=== PATIENT | male | born 1940 | race Caucasian/White ===

== ENCOUNTER → 2016-07-20 | Outpatient (REF) ==
[~2016-07-20] MED LIST: CIPRO 500MG TA500 MG PO; COLACE 100100 MG/CAP PO; NORCO 325 MG-51 TAB PO; PYRIDIUM 100MG100 MG PO
[2016-07-20 04:53] LABS: BASO % 0.2 % (0.0-2.0); GRAN # 11.2 (1.4-6.5); GRAN % 89.7 % (42.2-75.2); HEMATOCRIT 40.7 % (42.0-52.0); HEMOGLOBIN 14.1 g/dl (13.5-18.0); LYMPH # 0.8 (1.2-3.4); LYMPH % 6.8 % (20.0-51.0); MEAN CELL VOLUME 93 fl (80.0-100.0); MEAN CORPUSCULAR HEMOGLOBIN 32 pg (27.0-31.0); MEAN CORPUSCULAR HGB CONC 35 g/dl (33.0-37.0); MEAN PLATELET VOLUME 10.6 fl (7.4-10.4); MONO # 0.4 (0.1-0.6); MONO % 2.8 % (1.7-9.3); PLATELET COUNT 163 K/mm3 (130-400); RED BLOOD COUNT 4.37 M/mm3 (4.20-5.60); REDCELL DISTRIBUTION WIDTH-CV 13.4 % (11.5-14.5); WHITE BLOOD COUNT 12.4 K/mm3 (4.8-10.8)
== END ==
LOC: ZMSC 04:50
PROVIDERS: Urology
DX: Z01.89 Encounter for other specified special examinations (principal)

== ENCOUNTER 2016-07-25 15:58 | Observation (INO) | payer MEDICARE, BC ==
[~2016-07-25] VITALS: Ht 172.7 cm; Wt 77.5 kg
[2016-07-25] MEDS ORDERED: PYRIDIUM 100MG100 MG PO (16:26)
[2016-07-25] MEDS ORDERED: NORCO 325 MG-51 TAB PO (16:26)
[2016-07-25] MEDS ORDERED: CIPRO 500MG TA500 MG PO (16:27)
[2016-07-25 17:16] LABS: PH 6 (5-8); URINE APPEARANCE Cloudy; URINE BILIRUBIN Negative (NEGATIVE); URINE BLOOD 2+ (NEGATIVE); URINE GLUCOSE Negative (NEGATIVE); URINE KETONE Negative (NEGATIVE); URINE UROBILINOGEN Negative (NEGATIVE)
[2016-07-25 17:17] LABS: URINE BACTERIA Moderate /hpf; URINE COLOR Red
[2016-07-25 17:18] LABS: URINE RBC >50 /hpf
[2016-07-25 18:06] VITALS: BP 137/60; PULSE 75; TEMP 97
[2016-07-25] MEDS ORDERED: COLACE 100100 MG/CAP PO (18:08)
[2016-07-26 02:16] VITALS: BP 134/61; PULSE 79; TEMP 98.5
[2016-07-26 04:55] VITALS: BP 144/65; PULSE 84; TEMP 99.6
[2016-07-26 09:30] VITALS: BP 163/53; PULSE 83; TEMP 98.3
[2016-07-26 14:13] VITALS: BP 131/57; PULSE 79; TEMP 98.9
== END 2016-07-26 15:35 | disposition home or self-care (01) ==
LOC: COL.ER 15:58 → JCC 16:48
PROVIDERS: Emergency Medicine
DX: R31.9 Hematuria, unspecified (principal); R33.9 Retention of urine, unspecified; Z90.49 Acquired absence of other specified parts of digestive tract
CPT/HCPCS: A4315; G0378; J7030

== ENCOUNTER 2019-01-21 13:15 | Day surgery (SDC) | payer MEDICARE, BC ==
[~2019-01-21] VITALS: Ht 170.2 cm; Wt 80.0 kg
[2019-01-21 14:07] VITALS: BP 135/69; PULSE 63; TEMP 97.6
[2019-01-21] MEDS ORDERED: VITAMINC1000TA PO (14:11)
[2019-01-21] MEDS ORDERED: VITAMINE200 PO (14:11)
[2019-01-21] MEDS ORDERED: OMEGA-3 1000 MG1 CAP PO (14:12)
[2019-01-21] MEDS ORDERED: MAGNESIUM200 MG PO (14:12)
[2019-01-21] MEDS ORDERED: VITAMIN B12 781 TAB PO (14:13)
[2019-01-21] MEDS ORDERED: BIOFLEX PO (14:13)
[2019-01-21 15:00] VITALS: BP 121/71; PULSE 74; TEMP 97.5
--- NOTE | 2019-01-21 15:00 | NUR ---
Patient brought back to [facility] via cart. Ambulated to chair without difficulty. Placed on monitors, vital signs stable. Denies pain or nausea. at bedside. Report recieved from MELANIE RN. Pt requests orange juice and muffin. Will continue to monitor.
[2019-01-21 15:15] VITALS: BP 118/61; PULSE 69
--- NOTE | 2019-01-21 15:15 | NUR ---
Patient states he is feeling well. Tolerating food and drink without difficulty. Vital signs stable. Will continue to monitor.
[2019-01-21 15:30] VITALS: BP 118/56; PULSE 64
--- NOTE | 2019-01-21 15:30 | NUR ---
PT states he feels ready to go home at this time. Tolerated food and drink without difficulty. Vital signs stable. Dr. Richmond at bedside to discuss results. Discharge instructions reviewed with patient and . All questions answered. IV removed, tolerated well. Pt to get dressed at this time.
--- NOTE | 2019-01-21 15:50 | NUR ---
Patient brought down to lobby via wheel chair. Pt to be driven home by .
== END 2019-01-21 15:50 | disposition home or self-care (01) ==
LOC: SDCO 13:15
DX: K22.2 Esophageal obstruction (principal); K22.70 Barrett's esophagus without dysplasia; K20.0 Eosinophilic esophagitis; K44.9 Diaphragmatic hernia without obstruction or gangrene; E78.5 Hyperlipidemia, unspecified; K76.0 Fatty (change of) liver, not elsewhere classified; Z90.49 Acquired absence of other specified parts of digestive tract; Z88.1 Allergy status to other antibiotic agents; Z88.8 Allergy status to other drugs, medicaments and biological substances; Z79.82 Long term (current) use of aspirin
CPT/HCPCS: C1726; J2250; J3010; J7030